=== PATIENT | male | born 1955 | race Caucasian/White ===

== ENCOUNTER → 2017-10-12 | Outpatient (CLI) | payer BC ==
[2017-10-12 16:28] LABS: Basophils # (A) 0.1 k/uL (0-0.2); Basophils % (A) 1 %; CH 31.5; Eosinophils # (A) 0.4 k/uL (0-0.7); Eosinophils % (A) 5 %; HCT 46.2 % (39.0-53.0); HDW 2.45; HGB 15.5 gm/dL (13.0-17.5); Luc # (Auto) 0.13; Luc % (Auto) 2; Lymphocytes # (A) 2.2 k/uL (1.0-4.8); Lymphocytes % (A) 28 %; MCH 31.3 pg (25.0-35.0); MCHC 33.6 g/dL (31.0-37.0); MCV 93.1 fL (80.0-100.0); Mean Platelet Volume 6.7; Monocytes # (A) 0.5 k/uL (0-1.0); Monocytes % (A) 6 %; Neutrophils # (A) 4.7 k/uL (1.3-7.7); Neutrophils % (A) 59 %; RBC 4.96 m/uL (4.30-5.90); RDW 13.5 % (11.5-15.5); WBC 7.9 k/uL (3.8-10.6); WBC (Perox) 7.62
[2017-10-12 16:38] LABS: Potassium 4.5 mmol/L (3.5-5.1)
== END | disposition home or self-care (01) ==
LOC: LABPAT 15:56
PROVIDERS: ATTEND Orthopaedic Surgery
DX: Z01.818 Encounter for other preprocedural examination (principal); R94.31 Abnormal electrocardiogram [ECG] [EKG]; I45.2 Bifascicular block; Z01.812 Encounter for preprocedural laboratory examination
CPT/HCPCS: 36415; 80051; 85025; 93005

== ENCOUNTER 2017-10-25 06:27 | Day surgery (SDC) | payer BC ==
--- NOTE | 2017-10-24 09:07 | HP ---
HISTORY AND PHYSICAL CHIEF COMPLAINT: Right shoulder pain. 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 He denies any new injury. He previously underwent open rotator cuff repair in 2006. He is having pain with overhead use and at night. He has tried anti-inflammatories and rest with persistence of his symptoms. PAST MEDICAL HISTORY: Negative. PAST SURGICAL HISTORY: Significant for open right rotator cuff repair. CURRENT ALLERGIES: Aspirin. ALLERGIES: He denies drug allergies. FAMILY HISTORY: Noncontributory. SOCIAL HISTORY: Significant for social alcohol use. REVIEW OF SYSTEMS: Sixteen point review of systems otherwise reviewed and is noncontributory. PHYSICAL EXAMINATION: On examination, the patient is approximately 6 feet 1 inch, 230 pounds of mesomorphic habitus. HEENT exam is nonfocal. Neck is supple. On examination of his right shoulder, he has a healed anterior incision. He is tender about the AC joint and the bicipital groove. He has moderate subacromial crepitus. Active range of motion forward elevation 165 degrees, external rotation with the arm to side 55 degrees, internal rotation T11. Motor strength is 4/5 for abduction and external rotation. Impingement, Neer and Speed tests are positive. His distal neurovascular exam appears to be intact in the right upper extremity. MRI report for the right shoulder from 10/09/2017 shows a supraspinatus tendon tear along with intra-articular biceps tendinopathy. Significant AC joint arthropathy is also noted. IMPRESSION: 1. Symptomatic right rotator cuff retear. 2. Right bicipital tendinitis. 3. Right acromioclavicular joint arthritis. RECOMMENDATIONS: I talked to the patient at length regarding his treatment options. At this point, he is quite symptomatic and limited because of pain. After thorough discussion, he opts to proceed with surgery. We will plan to proceed with arthroscopic evaluation with probable subacromial decompression, rotator cuff repair versus debridement, possible biceps tenotomy, and possible distal clavicular resection. Risks and benefits were discussed at length in layman's terms. We will likely perform that as an outpatient procedure. MMODL / IJN: [id number] /
[2017-10-24 10:18] VITALS: BMI 30.3
[~2017-10-25 06:27] MED LIST: ceFAZolin IN SWFI 2 GM/20 ML SYRINGE IVP ONE
[2017-10-25] MEDS ORDERED: LIDOCAINE 1% 20 ML VIAL (10MG/ML) FOR IV START INTRADERMA ONE (07:00)
[2017-10-25] MEDS ORDERED: LACTATED RINGERS 1,000 ML IV ONE (07:18)
[2017-10-25] MEDS ORDERED: MIDAZOLAM 2 MG/2 ML VIAL IVP ONE (07:33)
[2017-10-25] MEDS ORDERED: DEXAMETHASONE SOD PHOS (MDV) 100 MG/10 ML VIAL IVP ONE (07:36)
[2017-10-25] MEDS ORDERED: ONDANSETRON 4 MG/2 ML VIAL IVP ONE (07:36)
--- NOTE | 2017-10-25 07:46 | P.ONQ ---
Anesthesiology Proc Note - PNB - Peripheral Nerve Block Performed Right Interscalene Single Time Out Performed: Yes (7:32) Procedure Start Time: 07:33 Procedure Stop Time: :42 Indication: Acute Post-Operative Pain, Requested by physician Sedation Type: Sedate with meaningful contact maintained Preparation: Sterile Prep Position: Supine Catheter: None Needle Types: Facet Needle Size: 100mm (4") Needle Gauge: 20 Technique: Ultrasound Injectate: 0.5% Ropivacaine (see comment for volume) (30 mls)
[2017-10-25] MEDS ORDERED: SODIUM CHLORIDE 0.9% 50 ML with ceFAZolin 2,000 MG IV ONE ×2 (07:53)
[2017-10-25] MEDS ORDERED: MIDAZOLAM 2 MG/2 ML VIAL ONE (07:53)
[2017-10-25] MEDS ORDERED: ROPIVACAINE 5 MG/ML 30 ML VIAL ONE (07:53)
[2017-10-25] MEDS ORDERED: PROPOFOL 10 MG/ML 20 ML VIAL IV ONE (07:53)
[2017-10-25] MEDS ORDERED: SUCCINYLCHOLINE CHLORIDE 100 MG/5 ML SYR IV ONE (07:53)
[2017-10-25] MEDS ORDERED: fentaNYL (PF) 50 MCG/ML 2 ML AMP ONE (07:53)
[2017-10-25] MEDS ORDERED: LIDOCAINE 1% INJ 10MG/ML (20 ML MDV) ONE (07:53)
[2017-10-25] MEDS ORDERED: PHENYLEPHRINE-0.9% NACL SYG 1 MG/10 ML SYRINGE ONE (07:53)
[2017-10-25] MEDS ORDERED: EPINEPHrine (PF) 1 ML in SODIUM CHLORIDE 0.9% IRRIGATIO 3,000 ML IRRIGATION ONE (08:23)
--- NOTE | 2017-10-25 09:36 | P.OP ---
Date of Procedure: 10/25/17 Preoperative Diagnosis: Right shoulder impingement/acromioclavicular joint synovitis/probable rotator cuff tear Postoperative Diagnosis: Right shoulder 2 cm rotator cuff tear/high-grade partial-thickness tear long head of biceps Procedure(s) Performed: Right shoulder arthroscopic subacromial decompression/rotator cuff repair/ distal clavicular resection/biceps tenotomy/superior labral debridement Implants: Arthrex 5.5 mm swivel lock anchor 1 Anesthesia: ANTHONY regional Surgeon: Etienne Young Estimated Blood Loss (ml): 10 Pathology: none sent Condition: stable Disposition: PACU Indications for Procedure: The patient's a 62-year-old male who presents with progressive right shoulder pain for the past several months despite conservative measures. He previously undergone open rotator cuff repair in the past. A discussion of the risks and benefits of continued conservative measures versus operative intervention was made with the patient. He opted to proceed with surgery. Operative risks to include infection, neurovascular injury, development of blood clots, possible tendon rerupture, possible postoperative stiffness and need for subsequent procedures was discussed. Informed consent was obtained. Operative Findings: As below Description of Procedure: The patient was brought to the operating room, and after induction of general anesthesia was placed in a beachchair position. The bony prominences were appropriately padded. I examined the right shoulder. There was no gross block to passive motion. There was no gross glenohumeral instability. The right upper extremity was then prepped and draped in normal fashion. The bony outlines of the acromion, distal clavicle, and coracoid process were outlined with a skin marker. The glenohumeral joint was inflated with 50 mL of saline utilizing a spinal needle from posterior approach. A posterior portals made through a 5 mm skin incision 1 cm medial and inferior to the posterior lateral border of the acromion. A blunt trocar was used to easily into the joint. Diagnostic arthroscopy was performed. An anterior portals made just lateral to the coracoid process entering the joint above the subscapularis tendon. On inspection of the biceps, a high-grade partial-thickness tear of the intra- articular portion along of the biceps was noted. It was elected to proceed with tenotomy at this point. This was released retract to the bicipital groove with electrocautery. The superior labrum was debrided back to a stable base with a motorized shaver. On inspection the rotator cuff, a recurrent tear involving the supraspinatus was noted with minimal retraction. The previously placed suture was removed. The footprint was debrided with a shaver. The posterior portion of the cuff was intact. The subscapularis was intact. The posterior labrum was intact. The anterior labrum was intact. The inferior recess was inspected. No significant chondral defects were noted in the glenoid or humeral head. The arthroscope was then placed into the subacromial space. A lateral portal was made through a 5 mm skin incision 2 centimeters inferior to the anterior lateral border of the acromion. The soft tissue on the undersurface the acromion was debrided with a motorized shaver and with electrocautery clearly defining the anterior medial and lateral borders. Residual anteromedial hook was noted. This was removed with a motorized bur. Significant degenerative changes involving the before meals joint were noted. The distal 5 mm of the clavicle was removed with a motorized bur. The rotator cuff was inspected from the bursal surface. Significant bursal thickening was noted. This was debrided with a motorized shaver. A 1.5 cm full-thickness rotator cuff tear involving the supraspinatus was noted without much retraction. The greater tuberosity was lightly decorticated utilizing a motorized bur. A scorpion suture passer was utilized to pass #2 fiber tape through the rotator cuff as well as a fiber link sutures. A lateral anchor was then placed utilizing the appropriate starting awl. The sutures were appropriately tensioned. Good purchase was obtained. Final arthroscopic view showed adequate taoist of the footprint with compression. The arthroscope was then removed. The portals were closed with simple 3-0 nylon suture. A sterile dressing was applied in addition to an abductor brace. The patient was awoken from general anesthesia and transferred to recovery room in good condition. Blood loss was estimated at 10 mL. No complications were incurred. Sponge and needle counts were correct in the case.
[2017-10-25 09:42] VITALS: RESP 16; TEMP 96.8
[2017-10-25 11:05] VITALS: BP 118/79; PULSE 79
== END 2017-10-25 11:29 | disposition home or self-care (01) ==
LOC: OR 06:27
PROVIDERS: ATTEND Orthopaedic Surgery
DX: M75.101 Unspecified rotator cuff tear or rupture of right shoulder, not specified as traumatic (principal); M67.813 Other specified disorders of tendon, right shoulder; M19.011 Primary osteoarthritis, right shoulder; M75.21 Bicipital tendinitis, right shoulder; M75.41 Impingement syndrome of right shoulder; K21.9 Gastro-esophageal reflux disease without esophagitis
CPT/HCPCS: 29827; 29822; 29826; 29824; 64415; C1713 ×3; C1894; J2250; J2405; J0171; J2001; J3010; J0690; J1100; J2795; J2370; J0330; J2704

== ENCOUNTER → 2023-03-14 | Outpatient (CLI) | payer MEDICARE, OTHER ==
--- NOTE | 2023-03-14 16:03 | P.SLEEP ---
History of Present Illness DATE: 03/14/2023 CONSULTATION/NEW PATIENT EVALUATION HISTORY OF PRESENT ILLNESS/SLEEP-WAKE EVALUATION: 67-year-old gentleman had been evaluated in the sleep center for possible obstructive sleep apnea hypopnea syndrome. SLEEP SCHEDULE: Usually sleep schedule from midnight until 6 AM. FALLING ASLEEP: Patient has problems with falling asleep, although no TV in bedroom. DURING SLEEP: Patient snores and has witnessed episodes of stop breathing during the sleep by his girlfriend. Multiple awakenings from sleep. No history of hypnogogical hallucinations, sleep paralysis, or cataplexy. DURING THE DAY/WAKE STATE: In the morning patient wake up tired, falling asleep during the day.. [place] sleepiness scale is 6. Usually patient doesn't take naps. PAST MEDICAL HISTORY: Hypertension, emphysema. PAST SURGICAL HISTORY: Right shoulder surgery. MEDICATIONS: Losartan, tadalafil. SOCIAL HISTORY: Positive for smoking quit 30 years ago, alcohol consumption daily. FAMILY HISTORY: Stroke, heart problems. REVIEW OF SYSTEMS: Snoring, multiple awakenings from sleep. No fevers. No double vision. No recent chest pain. No shortness of breath. No abdominal pain. No bleeding episodes. No blood in urine. No seizure episodes. PHYSICAL EXAMINATION: GENERAL: A pleasant patient without any distress. VITAL SIGNS: BP 166/96 , HR 74 , RR 12 , weight 204 pounds, height 6 foot 0 inches, body mass index 29.9 . HEENT: PERRLA, EOMI. Evaluation of oropharynx showed tongue protrudes midline, low position of soft palate Mallampati 2-3, wide pillars, big uvula. NECK: Supple. No JVD. Thyroid is not palpable. 16.5 inches in circumference. LUNGS: Clear to percussion and to auscultation. Good air exchange. No wheezing or rhonchi. HEART: S1, S2 regular. No murmurs, gallops or rubs. ABDOMEN: Soft and nontender. Bowel sounds are present. No organomegaly appreciated. EXTREMITIES: No clubbing or cyanosis. BRAIDING OPERATOR: Awake, alert, and oriented x3. Cranial nerves 2 to 7 intact. There is no fasciculation or atrophy noted. No focal deficits observed. ASSESSMENT: 1. Snoring, witnessed episodes of stop breathing during the sleep, small oropharyngeal airspace. Obstructive sleep apnea hypopnea syndrome. 2. Hypertension. 3. History of emphysema. 4. Status post right shoulder surgery. PLAN: 1. Polysomnography for evaluation of patient's breathing during sleep. 2. CPAP/BiPAP titration if sleep study confirms obstructive sleep apnea- hypopnea syndrome. 3. Preferable position during sleep on the side. 4. No driving if patient feels any sleepiness. Patient is aware of civil and criminal liability for unsafe driving. 5. Sleep hygiene with regular sleep time for at least 7.5-8 hours. 6. Watching weight. Thank you very much for referring this patient for consultation. Sincerely, Klever Anderson MD, PhD, FAASM. Diplomat of [place] [employer], Sleep Medicine Board by [place] [employer] [place] [employer] [facility] Past Medical History Past Medical History: Musculoskeletal Disorder Additional Past Medical History / Comment(s): BP tends to run higher end of normal-never has needed any meds for History of Any Multi-Drug Resistant Organisms: None Reported Past Surgical History: Orthopedic Surgery Additional Past Surgical History / Comment(s): shoulder surg., arthroscopic knee surg. Past Anesthesia/Blood Transfusion Reactions: No Reported Reaction Past Psychological History: No Psychological Hx Reported Past Alcohol Use History: Occasional Past Drug Use History: None Reported - Past Family History Father Family Medical History: Cancer Medications and Allergies Home Medications Medication Instructions Recorded Confirmed Type Cholecalciferol [Vitamin D3] 2,000 unit PO DAILY 10/24/17 10/25/17 History HYDROcodone/APAP 7.5-325MG [[place] 1 each PO Q6HR PRN #30 tab 10/25/17 Rx 7.5] Allergies Allergy/AdvReac Type Severity Reaction Status Date / Time No Known Allergies Allergy Verified 10/25/17 06:50 Sleep Note - Sleep Note Sleep Note: Temperature: Pulse Rate: Respiratory Rate: Blood Pressure: SpO2: Height: Weight: BMI: Neck Circumference:
== END ==
LOC: SLEEP 14:03
PROVIDERS: ATTEND Internal Medicine
DX: G47.33 Obstructive sleep apnea (adult) (pediatric) (principal); I10 Essential (primary) hypertension; J43.9 Emphysema, unspecified; Z96.621 Presence of right artificial elbow joint; Z99.89 Dependence on other enabling machines and devices
CPT/HCPCS: 99211

== ENCOUNTER 2025-01-30 08:50 | Day surgery (SDC) | payer MEDICARE, OTHER ==
[~2025-01-30 08:50] MED LIST changes: +LIDOCAINE 1% (10MG/ML) FOR IV START INTRADERMA PRN; -ceFAZolin IN SWFI 2 GM/20 ML SYRINGE IVP ONE
[2025-01-30 09:28] VITALS: RESP 16; TEMP 97
[2025-01-30] MEDS: LACTATED RINGERS 1,000 ML IV SCH (09:28)
[2025-01-30] MEDS ORDERED: PROPOFOL 10 MG/ML 20 ML VIAL IV ONE (10:25)
--- NOTE | 2025-01-30 10:43 | P.PCN ---
Date of Procedure: 01/30/25 Procedure(s) Performed: BRIEF HISTORY: Patient is a 69-year-old pleasant white male scheduled for an elective colonoscopy as a part of screening for history of colon polyps and family's of colon cancer. His brother was diagnosed with colon cancer at age 60. PROCEDURE PERFORMED: Colonoscopy with snare polypectomy. PREOPERATIVE DIAGNOSIS: Screening for history of colon polyps and family history of colon cancer. IV sedation per Anesthesia. PROCEDURE: After informed consent was obtained, the patient, was brought into the endoscopy unit. IV sedation was administered by Anesthesia under continuous monitoring. Digital rectal examination was normal. Initially the Olympus CF-160 flexible video colonoscope was then inserted in the rectum, gradually advanced into the cecum without any difficulty. Careful examination was performed as the scope was gradually being withdrawn. Ileocecal valve and the appendiceal orifice were visualized and appeared normal. Prep was excellent. Mucosa of the cecum, ascending colon, appeared normal. The transverse colon there was a 1 cm flat polyp removed by snare polypectomy. Rest of the transverse colon, descending colon, sigmoid colon, and rectum appeared normal. Retroflexion was performed in the rectum and no lesions were seen. The patient tolerated the procedure well. IMPRESSION: 1 cm flat transverse colon polyp status post snare polypectomy Scattered sigmoid diverticulosis RECOMMENDATIONS: Findings of this examination were discussed with the patient as well as her family. She was advised to follow-up with the biopsy results. If the biopsy reveals adenoma she can have repeat colonoscopy in 3 years..
[2025-01-30 11:07] VITALS: BP 134/74; PULSE 83
== END 2025-01-30 11:34 | disposition home or self-care (01) ==
LOC: ORWHC2ENDO 08:50
PROVIDERS: ATTEND Internal Medicine Gastroenterology
DX: Z12.11 Encounter for screening for malignant neoplasm of colon (principal); D12.3 Benign neoplasm of transverse colon; K57.30 Diverticulosis of large intestine without perforation or abscess without bleeding; Z86.0100 Personal history of colon polyps, unspecified; Z80.0 Family history of malignant neoplasm of digestive organs; I10 Essential (primary) hypertension; J44.9 Chronic obstructive pulmonary disease, unspecified; Z87.891 Personal history of nicotine dependence; Z79.899 Other long term (current) drug therapy
CPT/HCPCS: 88305; 45385; J2704

== ENCOUNTER → 2025-02-10 | Outpatient (CLI) | payer MEDICARE, OTHER ==
--- NOTE | 2025-02-10 08:22 | MR ---
EXAMINATION TYPE: MR Prostate wo/w con DATE OF EXAM: 02/10/2025 COMPARISON: None. INDICATION: Elevated PSA. PSA: 7.53 ng/ml on January 12, 2025 Recent Biopsy and Date: None Pathology Report (If Applicable): n/a TECHNIQUE: Examination was performed using a 3T MRI without an endorectal coil. Multiparametric imaging was perf ormed with T2 mutliplanar sequences, axial diffusion weighted imaging and dynamic contrast enhanced i maging, utilizing 9 mL intravenous Gadobutrol gadolinium contrast. FINDINGS: PROSTATE VOLUME: 4.2 cm SI x 3.2 cm AP x 4.4 cm LR Vol= 31.0 cc PSA DENSITY: 0.24 ng/ml/cc Minimally enlarged prostate gland. Wedge-shaped area of slightly diminished signal on ADC mapping nidia trally in the peripheral zone. No areas of marked diminished signal are identified. There is transiti onal zone nodules. No suspicious T2 hypointense areas. No areas of significant signal on diffusion-we ighted imaging. Assessment Category:2 Sigmoid colonic diverticula are present. No destructive osseous lesions. There is evidence of moderat e to advanced degenerative change in both hips with osseous edema in the left femoral head and to les ser degree superior acetabulum. IMPRESSION: Minimally enlarged prostate gland. A focus of clinically significant cancer is not identified. Highest Assessment Category: 2 MRI Stage: T0 N0 M0 based on review of pelvic images. False negative rates for MRI range from 5-20% depending on risk profile. Advise imaging guided random biopsy if the PSA continues to rise. Assessment Categories: 1 ? Very low (clinically significant cancer is highly unlikely to be present) 2 ? Low (clinically significant cancer is unlikely to be present) 3 ? Intermediate (the presence of clinically significant cancer is equivocal) 4 ? High (clinically significant cancer is likely to be present) 5 ? Very high (clinically significant cancer is highly likely to be present) [facility], , 02/10/2025 8:19 AM
== END | disposition home or self-care (01) ==
LOC: RADMRIMAIN 06:40
PROVIDERS: ATTEND Urology
DX: N40.0 Benign prostatic hyperplasia without lower urinary tract symptoms (principal); R97.20 Elevated prostate specific antigen [PSA]
CPT/HCPCS: 72197; A9585